=== PATIENT | male | born 1975 | race Caucasian/White ===

== ENCOUNTER 2023-05-13 11:42 | Emergency (ER) | payer BC, SELFPAY ==
[2023-05-13 12:14] VITALS: BP 130/88; PULSE 100; RESP 16; TEMP 36.6; O2SAT 98
--- NOTE | 2023-05-13 12:32 | ED.GENADUL_ITS ---
Discharge Plan Disposition Patient Disposition: Home Discharge Details Clinical Impression: COVID-19 virus infection Primary Care Provider: [facility] Provider: Herbert Brown Home Meds and New Rx's Prescriptions: New cetirizine 10 mg tablet 10 mg PO DAILY PRNQty: 7 0RF benzonatate 100 mg capsule 100 mg PO BID PRNQty: 7 0RF promethazine-DM 6.25-15 mg/5 mL syrup 5 ml PO Q6H PRNQty: 118 0RF doxycycline hyclate 100 mg capsule 100 mg PO BID Qty: 10 0RF albuterol sulfate 90 mcg/actuation HFA aerosol inhaler 2 puff inhalation Q6H PRNQty: 6.7 0RF No Action oxycodone-acetaminophen 1 TAB tablet 1 tab PO Q4H PRN PRN (Reason: Pain) Qty: 30 0RF lamotrigine 150 mg tablet 150 mg PO DAILY Patient Comments: TAKE 1 TABLET BY MOUTH EVERY DAY citalopram 40 mg tablet 40 mg PO DAILY Patient Comments: TAKE 1 TABLET BY MOUTH EVERY DAY lisinopril 20 mg tablet 20 mg PO DAILY Patient Comments: TAKE 1 TABLET BY MOUTH EVERY DAY valsartan 320 mg tablet 320 mg PO DAILY Patient Comments: TAKE 1 TABLET BY MOUTH EVERY DAY methylphenidate HCl [Concerta] 18 mg tablet extended release 24hr 18 mg PO DAILY Patient Comments: TAKE 1 TABLET BY MOUTH EVERY DAY amlodipine 5 mg tablet 5 mg PO DAILY Patient Comments: TAKE 1 TABLET (5 MG TOTAL) BY MOUTH DAILY. Allergy Relief D12 5-120 mg tablet extended release 12 hr 1 tab PO DAILY PRN calcium phos,dibas-vitamin D3 77-400 mg-unit tablet 1 tab PO .PO Discharge Instructions Instructions: Viral Syndrome (ED) Additional Instructions: You are seen in the emergency department for your COVID infection. Your oxygen level was within normal limits. Your lung exam showed no sign of a pneumonia. Please return to the emergency department if you develop worsening shortness of breath chest pain or if you pass out. Please quarantine at home until your home COVID test is negative or you have no symptoms which ever comes first. Please take these medicines which you are being prescribed as needed. For your pain please take medications as follows: 1. Take acetaminophen (Tylenol), 1,000 mg (two 500 mg tabs) every 6 hours 2. Take ibuprofen (Advil), 400 mg every 6 hours. Discharge Data Discharge Date/Time-TO BE ENTERED AT DEPARTURE: 05/13/23 14:03 HPI General Date/Time Provider Initiated Documentation: 05/13/23 12:31 . HPI Narrative: MDM This is an overall well-appearing mildly tachycardic but normothermic 48-year-old male history of hypertension arrived to the emergency department in the setting of known COVID infection appropriate for discharge given no hypoxia and positive vaccination status. Patient has no significant lung abnormalities on auscultation to suggest concurrent bacterial pneumonia. No hypoxia no indication for hospitalization so we will defer dexamethasone at this point in time. No trauma and equal breath sounds so my suspicion is low for pneumothorax. Patient does have a significant burden of symptoms and is obese so we will treat with supportive care for URI including Flonase cetirizine Tessalon Perles naproxen and acetaminophen as needed. No reported calf pain or hypoxia so doubt PE. Patient and I discussed return indications including any worsening shortness of breath or difficulty breathing. He also has a remote history of tobacco use and as result I discharged him with an albuterol inhaler. Otherwise advised PMD follow-up as needed. Patient understood his return indications who was discharged with empiric trial of expectant outpatient management. His tachycardia improved without intervention in the ED. I did advise the patient that if he did not feel comfortable at home that he should return to the emergency department. We also discussed quarantining for 5 days or until his symptoms resolved or he tested negative on a home COVID swab. Chronic conditions affecting the care of the patient: Hypertension obesity History obtained from an outside historian: N/A Medications: N/A Social determinants of health affecting disposition: N/A Management discussed with: N/A Treatment/interventions considered: N/A Response to therapies provided: N/A HPI This is an obese 48-year-old male with history of hypertension and ADHD arriving to the emergency department via private vehicle in the setting of COVID infection with with sweating and occasional difficulty breathing. Patient feels that her symptoms are reminiscent of prior episodes of bronchitis. He swab positive for COVID 5 days ago. Yesterday he was sweating and endorsed a fever up to 102 ?F. He has been coughing. He had a runny nose. He is vaccinated boosted against COVID. He takes outpatient valsartan and citalopram in addition to lamotrigine and amlodipine. He has not taken any falls. He has not been nauseous nor vomiting. He is not having any calf pain. His daughter is sick with similar symptoms. Exam General: Well-appearing in no acute distress speaking in complete sentences. Head: Normocephalic, atraumatic. Eye: Extraocular eye movements intact. No conjunctival injection. No scleral icterus. Ear, nose, mouth, throat: Grossly normal inspection. Normal voice, handling secretions normally. Neck: Trachea midline. Cardiovascular: Well-perfused distal extremities. Regular rate and rhythm. Respiratory: Nonlabored respiration. Clear lungs bilaterally. Gastrointestinal: Nondistended abdomen. Musculoskeletal: No edema. Moving all 4 extremities spontaneously. Skin: Normal for age and race, grossly normal temperature and turgor. No acute rash. Neurologic: Alert and appropriate, no apparent acute deficits. Psychiatric: Mood and manner are appropriate. Grooming and personal hygiene are appropriate. Related Data Home Medications Medication Instructions Recorded Confirmed oxycodone-acetaminophen 5 mg-325 1 tab PO Q4H PRN PRN Pain #30 tabs 05/08/16 05/13/23 mg tablet albuterol sulfate 90 mcg/actuation 2 puff inhalation Q6H PRN #6.7 05/13/23 aerosol inhaler grams amlodipine 5 mg tablet 5 mg PO DAILY 05/13/23 05/13/23 benzonatate 100 mg capsule 100 mg PO BID PRN #7 caps 05/13/23 calcium phosphate,dibasic 77 1 tab PO .PO 05/13/23 05/13/23 mg-vitamin D3 400 unit tablet cetirizine 10 mg tablet 10 mg PO DAILY PRN #7 tabs 05/13/23 citalopram 40 mg tablet 40 mg PO DAILY 05/13/23 05/13/23 doxycycline hyclate 100 mg capsule 100 mg PO BID #10 caps 05/13/23 lamotrigine 150 mg tablet 150 mg PO DAILY 05/13/23 05/13/23 lisinopril 20 mg tablet 20 mg PO DAILY 05/13/23 05/13/23 loratadine 5 mg-pseudoephedrine ER 1 tab PO DAILY PRN 05/13/23 05/13/23 120 mg tablet,extended release,12hr (Allergy Relief D12) methylphenidate HCl 18 mg 18 mg PO DAILY 05/13/23 05/13/23 tablet,extended release 24 hr (Concerta) promethazine-DM 6.25 mg-15 mg/5 mL 5 ml PO Q6H PRN #118 mL 05/13/23 oral syrup valsartan 320 mg tablet 320 mg PO DAILY 05/13/23 05/13/23 Previous Rx's Medication Instructions Recorded oxycodone-acetaminophen 5 mg-325 1 tab PO Q4H PRN PRN Pain #30 tabs 05/08/16 mg tablet albuterol sulfate 90 mcg/actuation 2 puff inhalation Q6H PRN #6.7 05/13/23 aerosol inhaler grams benzonatate 100 mg capsule 100 mg PO BID PRN #7 caps 05/13/23 cetirizine 10 mg tablet 10 mg PO DAILY PRN #7 tabs 05/13/23 doxycycline hyclate 100 mg capsule 100 mg PO BID #10 caps 05/13/23 promethazine-DM 6.25 mg-15 mg/5 mL 5 ml PO Q6H PRN #118 mL 05/13/23 oral syrup Allergies Allergy/AdvReac Type Severity Reaction Status Date / Time erythromycin base AdvReac Nausea Unverified 05/08/16 12:59 Penicillins AdvReac Nausea Unverified 05/08/16 12:59 General Stated Complaint: RespSymp VLADIMIR: 3 PFSH All Active Problems (Updated 05/13/23 @ 13:41 by Herbert Brown MD) COVID-19 virus infection (Acute) Social History Smoking risk assessment performed?: No Do you feel safe at home: Yes Do you feel safe in your relationship?: Yes Course Vital Signs Vital signs: Vital Signs Temperature 36.6 C 05/13/23 12:14 Pulse 100 H 05/13/23 12:14 Respiratory Rate 16 05/13/23 12:14 Blood Pressure 130/88 05/13/23 12:14 Pulse Oximetry 98 05/13/23 12:14 Temperature 36.6 C 05/13/23 12:14 Temperature Source Skin 05/13/23 12:14 Pulse 100 H 05/13/23 12:14 Respiratory Rate 16 05/13/23 12:14 Blood Pressure 130/88 05/13/23 12:14 Blood Pressure Position Sitting 05/13/23 12:14 Pulse Oximetry 98 05/13/23 12:14 Oxygen Delivery Method Room Air 05/13/23 12:14 Oxygen Flow Rate 0 05/13/23 12:14 Pain Level 7 05/13/23 12:14
[2023-05-13 13:46] VITALS: PULSE 86; O2SAT 98
[2023-05-13 13:49] VITALS: BP 130/88; PULSE 86; RESP 16; TEMP 36.6; O2SAT 98
--- NOTE | 2023-05-14 09:39 | W.ED.FU ---
Date of service: 05/14/23 Time of Service: 09:39 Follow Up Plan: I called the patient at home to inquire as to he was feeling. He reported that he was feeling well and felt like he was turning the corner.
== END 2023-05-13 14:03 | disposition home or self-care (01) ==
PROVIDERS: Emergency Provider Emergency Medicine
DX: U07.1 COVID-19 (principal); R06.02 Shortness of breath; F17.200 Nicotine dependence, unspecified, uncomplicated; E66.01 Morbid (severe) obesity due to excess calories
CPT/HCPCS: 99283